=== PATIENT | female | born 1950 | race Caucasian/White ===

== ENCOUNTER 2024-04-17 18:39 | Emergency (ER) | payer MEDICARE, OTHER, SELFPAY ==
[2024-04-17 18:51] VITALS: BP 146/71; PULSE 74; RESP 18; TEMP 37.5; O2SAT 98; BMI 26.6
--- NOTE | 2024-04-17 21:43 | ED_ITS ---
HPI - Allergic Reaction General Chief complaint: Allergic Reaction Stated complaint: cheek swelling Time Seen by Provider: 04/17/24 21:43 Source: patient Mode of arrival: Ambulatory History of Present Illness HPI narrative: Patient is a 73 year old female who presents today with sudden onset of right- sided cheek swelling. She reports that she occasionally does have a masseter muscle spasm in fact it has been so bad she has had Botox in it previously. However suddenly her cheeks started swelling while she was eating some macaroni salad and chicken. She has no prior history of anaphylaxis no tongue swelling lip swelling or difficulty breathing. She has been massaging it and putting ice on it he says that it is improved significantly. She also reports significant increase in saliva on that side. He has no prior history of parotid otitis this came on suddenly and is now improved since being in the ED. She recently has some sort of shoulder surgery as an outpatient she has been taking tramadol for it she took some earlier today it has not a new medication for her. Related Data Allergies Allergy/AdvReac Type Severity Reaction Status Date / Time codeine AdvReac Verified 04/17/24 18:51 morphine AdvReac Verified 04/17/24 18:51 Patient History Social History Smoking Status: Current every day smoker Smoking Status: Current every day smoker tobacco type: cigarettes alcohol intake frequency: a few times a month Substance Use Type: does not use Exam Initial Vital Signs Initial Vital Signs: Vital Signs Temperature 99.5 F 04/17/24 18:51 Pulse Rate 74 04/17/24 18:51 Respiratory Rate 18 04/17/24 18:51 Blood Pressure 146/71 H 04/17/24 18:51 Pulse Oximetry 98 04/17/24 18:51 Oxygen Delivery Method Room Air 04/17/24 18:51 GENERAL: Well-appearing, well-nourished and in no acute distress. HEENT: She does have some mild right-sided cheek swelling some submandibular lymphadenopathy no difficulty swallowing managing her own secretions no tongue swelling lip swelling no airway compromise CARDIOVASCULAR: peripheral pulses in tact, cap refill <2 sec RESPIRATORY: No respiratory distress, speaks in full sentences without difficulty EXTREMITIES: Normal range of motion, no clubbing or edema. Neurovascularly intact NEUROLOGICAL: Cranial nerves II through XII grossly intact. Normal gait and speech. SKIN: Warm, dry, no petechiae, no rashes or lesions. Course Orders Ordered: Discontinued Medications Prednisone (Prednisone 20 Mg Tablet) 20 mg PO NOW ONE Stop: 04/17/24 21:54 Last Admin: 04/17/24 22:16 Dose: 20 mg Documented By: VENKAT Vital Signs Vital signs: Vital Signs - 8 hr 04/17/24 18:51 04/17/24 22:20 Temperature 99.5 F Pulse Rate 74 71 Respiratory Rate 18 16 Blood Pressure 146/71 H 134/73 Pulse Oximetry 98 97 Oxygen Delivery Method Room Air Room Air MDM - Allergic Reaction MDM Narrative Medical decision making narrative: Patient 73-year-old female presents today with right-sided cheek swelling came on suddenly. It has been done with massage and ice. She has no other hives or evidence of anaphylaxis. I think possible like sialadenitis. She is still swollen but no airway compromise. She feels better would like to go home. She does not want to take a high dose of prednisone because it made her a little anxious previously. However she is agreeable to take some anti-inflammatory I think it might help some of the swelling. Recommended Benadryl he has had she has a lot of Benadryl at home. Low suspicion for any sort of Prasanna angina, low suspicion for anaphylaxis. She overall feels better I do not think she needs imaging or blood work Discharge Plan Departure Patient Disposition: Home Clinical Impression: Parotid sialadenitis Instructions: Parotitis, DI for Anaphylaxis Activity Restrictions/Additional Instructions: *You have been diagnosed with possible salivary gland stone *What to do: Convinced that this is an allergic reaction. But please continue to monitor. Hopefully the swelling goes down. You may continue to rub it and massage it. If this is truly a stone sour things like lemon drops may also help *Continue to take medications as directed Benadryl 25-50 mg every 6 hours if needed *Follow up with your primary care provider in 2-3 days or call [phone] *Return to ER if you should have increase in neck swelling difficulty breathing not managing secretions swelling in cheek [or] any new, worsening or concerning symptoms Referrals: Renetta Rudolph MD [Primary Care Provider] - Stand Alone Forms: Patient Portal/API/Survey
[2024-04-17] MEDS: predniSONE 20 MG TABLET PO (22:16)
[2024-04-17 22:20] VITALS: BP 134/73; PULSE 71; RESP 16; O2SAT 97
== END 2024-04-17 22:20 | disposition home or self-care (01) ==
PROVIDERS: Emergency Provider Emergency Medicine; PCP Internal Medicine
DX: K11.20 Sialoadenitis, unspecified (principal); T78.40XA Allergy, unspecified, initial encounter
CPT/HCPCS: 99283

== ENCOUNTER → 2024-08-26 15:30 | Outpatient (CLI) | payer MEDICARE, OTHER, SELFPAY | PROVIDERS: PCP Family Medicine; Visit Provider Registered Nurse | DX: N94.9 Unspecified condition associated with female genital organs and menstrual cycle (principal) | CPT/HCPCS: 87210 ==

== ENCOUNTER → 2024-11-02 11:08 | Outpatient (CLI) | payer MEDICARE, OTHER, SELFPAY ==
--- NOTE | 2024-11-02 11:09 | DI.MG.S_ITS ---
MM screening mammo BI: 11/02/2024. BI-RADS: 2 CLINICAL: 74-year old female for bilateral screening mammogram. No Tyrer-Cuzick risk score calculation due to the patient's personal history of breast cancer. Patient reports a history of right breast carcinoma diagnosed at age 43. Status-post right lumpectomy. No first-degree family history of breast cancer. Current reported family history of breast cancer: maternal grandmother. The patient had a prior right breast biopsy. PRIOR EXAMS: 10/06/2023, 09/30/2022, 09/03/2021. MAMMOGRAPHY TECHNIQUE: 2D and 3D (tomosynthesis) digital mammographic views obtained, with additional images as needed for full coverage. Current study was also evaluated with a Computer Aided Detection (CAD) system. DENSITY C. The breasts are heterogeneously dense, which may obscure small masses. MAMMOGRAPHY FINDINGS Right: Benign-appearing post-surgical changes noted on the right. There are no suspicious masses, calcifications, or other findings in the breast. Left: No suspicious mass, asymmetry, microcalcification, or other abnormality seen. IMPRESSION: Right * No evidence of malignancy with benign findings. Left * No evidence of malignancy. RECOMMENDATIONS Bilateral * Annual screening mammography. OVERALL ASSESSMENT CATEGORY BI-RADS-2: Benign. The [employer] recommends annual screening mammography beginning at age 40 for women with average risk of breast cancer. ELECTRONICALLY SIGNED: Lakeisha Nicholson M.D. on 11/05/2024 at 01:58:04 PM PT Interpreting Station ID: [id number]
== END ==
PROVIDERS: PCP Family Medicine; Referring Provider Family Medicine; Visit Provider Family Medicine
DX: Z12.31 Encounter for screening mammogram for malignant neoplasm of breast (principal); R92.343 Mammographic extreme density, bilateral breasts; Z85.3 Personal history of malignant neoplasm of breast; Z80.3 Family history of malignant neoplasm of breast
CPT/HCPCS: 77063; 77067

== ENCOUNTER → 2025-01-01 10:35 | Outpatient (CLI) | payer MEDICARE, OTHER, SELFPAY | PROVIDERS: PCP Family Medicine; Visit Provider Nurse Practitioner Family | DX: R30.0 Dysuria (principal) | CPT/HCPCS: 81002; 87086 ==

== ENCOUNTER → 2025-01-04 11:46 | Outpatient (CLI) | payer MEDICARE, OTHER, SELFPAY | LOC: LAB 11:46 | PROVIDERS: PCP Family Medicine; Visit Provider Family Medicine | DX: R30.0 Dysuria (principal) | CPT/HCPCS: 87086 ==